=== PATIENT | male | born 1960 | race Caucasian/White ===

== ENCOUNTER 2017-01-13 11:50 | Emergency (ER) | payer BC ==
[~2017-01-13] VITALS: Ht 172.7 cm; Wt 66.0 kg
[~2017-01-13 11:50] MED LIST: FLEXERIL10 MG PO; LIDODERM 5% P1 PATCH TD; NAPROXEN500 MG PO
[2017-01-13] MEDS ORDERED: ERYTHROMYC1 APPLICAT RIGHT EYE (13:18)
[2017-01-13 13:32] VITALS: BP 116/75
== END 2017-01-13 13:32 | disposition home or self-care (01) ==
LOC: EME 11:50
DX: S05.01XA Injury of conjunctiva and corneal abrasion without foreign body, right eye, initial encounter (principal); W22.8XXA Striking against or struck by other objects, initial encounter; F17.200 Nicotine dependence, unspecified, uncomplicated
CPT/HCPCS: 99281; 99284